=== PATIENT | male | born 1935 | race Caucasian/White ===

== ENCOUNTER 2018-09-28 09:33 | Emergency (ER) | payer MEDICARE, BC ==
[~2018-09-28] VITALS: Ht 165.1 cm; Wt 75.3 kg
[~2018-09-28 09:33] MED LIST: ATOR20TA PO; BISO5TAB2 PO; DUTA0.5C PO; METF-440 PO; METO200T49 PO
--- NOTE | 2018-09-28 09:47 | NUR ---
PATIENT WAS SEEN BY . DC AND FOLLOW UP INSTRUCTIONS GIVEN AND EXPLAINED TO [PATIENT WHO STATES HE UNDERSTANDS ALL INSTRUCTIONS. BG WAS 89
== END 2018-09-28 09:49 | disposition home or self-care (01) ==
LOC: ER 09:33
DX: E11.9 Type 2 diabetes mellitus without complications (principal); I10 Essential (primary) hypertension; F17.200 Nicotine dependence, unspecified, uncomplicated; Z79.899 Other long term (current) drug therapy
CPT/HCPCS: A4663

== ENCOUNTER 2018-10-12 16:37 | Emergency (ER) | payer MEDICARE, BC ==
[~2018-10-12] VITALS: Ht 170.2 cm; Wt 68.0 kg
[2018-10-12] MEDS ORDERED: ACETAMINOPHEN ES 500 MG TABLET ONE (17:11)
--- NOTE | 2018-10-12 17:12 | NUR ---
Patient discharged to home in stable conditon. Written and verbal after care instructions given. Patient verbalizes understanding of instructions. ALL BELONGINGS W/ PT. PT SELF-AMBULATED W/O DIFFICULTY.
[2018-10-12 17:13] VITALS: BP 102/58
[2018-10-12] MEDS ORDERED: ACETAMINOPHEN ES 500 MG TABLET PO ONE (17:15)
== END 2018-10-12 17:13 | disposition home or self-care (01) ==
LOC: ER 16:42
DX: L03.012 Cellulitis of left finger (principal); I10 Essential (primary) hypertension; E11.9 Type 2 diabetes mellitus without complications; F17.200 Nicotine dependence, unspecified, uncomplicated; Z79.899 Other long term (current) drug therapy
CPT/HCPCS: A4663; A9150

== ENCOUNTER 2019-04-02 00:32 | Emergency (ER) | payer MEDICARE, BC ==
[~2019-04-02] VITALS: Ht 170.2 cm; Wt 77.1 kg
[2019-04-02 01:00] LABS: BASOPHILS # (AUTO) 0.1 K/uL (0.0-8.0); EOSINOPHILS # (AUTO) 0.7 K/uL (0.0-0.7); HEMATOCRIT 43.9 % (36.7-47.1); HEMOGLOBIN 14.5 g/dL (12.5-16.3); LYMPHOCYTES # (AUTO) 2.2 K/uL (20.0-40.0); LYMPHOCYTES % (AUTO) 25.9 % (20.5-51.5); MEAN CORPUSCULAR HEMOGLOBIN 30.2 uug (23.8-33.4); MEAN CORPUSCULAR HGB CONC 33 g/dL (32.5-36.3); MEAN CORPUSCULAR VOLUME 91.3 fL (73.0-96.2); MONOCYTES # (AUTO) 0.8 K/uL (2.0-10.0); MONOCYTES % (AUTO) 8.9 % (0.0-11.0); NEUTROPHILS # (AUTO) 4.8 K/uL (1.8-8.9); NEUTROPHILS % (AUTO) 56.2 % (38.5-71.5); PLATELET COUNT (AUTO) 198 K/uL (152-348); RED BLOOD CELL COUNT(AUTO) 4.81 MIL/uL (4.06-5.63); WHITE BLOOD COUNT (AUTO) 8.6 K/uL (3.6-10.2)
[2019-04-02 01:02] LABS: *BILIRUBIN,URIN NEGATIVE (NEGATIVE); *BLOOD, URINE NEGATIVE (NEGATIVE); *CLARITY,URINE CLEAR (CLEAR); *COLOR,URINE YELLOW (YELLOW); *KETONES,URINE TRACE (NEGATIVE); *UROBILINOGEN,URINE 0.2 E.U./dl (NORMAL); LEUKOCYTE ESTERASE ,URINE NEGATIVE (NEGATIVE); NITRITE, URINE NEGATIVE (NEGATIVE); UGLUCOSE NEGATIVE (NEGATIVE)
[2019-04-02 01:15] LABS: CREATININE 1.3 mg/dL (0.6-1.3); POTASSIUM 4.2 mmol/L (3.5-5.1)
[2019-04-02] MEDS ORDERED: ONDANSETRON 4 MG/2 ML VIAL ONE (01:15)
[2019-04-02] MEDS ORDERED: ONDANSETRON 4 MG/2 ML VIAL IV ONE (01:15)
[2019-04-02] MEDS ORDERED: MORPHINE SULFATE 2 MG/1 ML DISP.SYRIN IV ONE (01:15)
[2019-04-02] MEDS ORDERED: MORPHINE SULFATE 2 MG/1 ML DISP.SYRIN ONE (01:16)
[2019-04-02 01:21] LABS: BILIRUBIN,DIRECT 0.1 mg/dL (0.0-0.2); BILIRUBIN,TOTAL 0.3 mg/dL (0.2-1.0)
--- NOTE | 2019-04-02 01:27 | NUR ---
Patient back in room CT.
[2019-04-02 01:57] LABS: BACTERIA,URINE NONE SEEN /HPF (NONE SEEN); RBC,URINE 0-3 /HPF (0-3); SQUAMOUS EPITHELIAL CELL,UR FEW /HPF (NONE SEEN); WBC,URINE 0-3 /HPF (0-3)
--- NOTE | 2019-04-02 02:08 | NUR ---
US at bedside for scan.
--- NOTE | 2019-04-02 02:32 | NUR ---
Patients will be picking up patient to take him home.
--- NOTE | 2019-04-02 02:40 | NUR ---
Per patient he will be taking uber, coordinated ride on patients home. Patient discharged to home in stable conditon. Written and verbal after care instructions given. Patient verbalizes understanding of instructions. Instructed patient not to drive. Patient ambulated with stable gait.
[2019-04-02 02:44] VITALS: BP 132/71
== END 2019-04-02 02:44 | disposition home or self-care (01) ==
LOC: ER 00:37
DX: R10.11 Right upper quadrant pain (principal); I10 Essential (primary) hypertension; E11.9 Type 2 diabetes mellitus without complications; E78.5 Hyperlipidemia, unspecified; F17.200 Nicotine dependence, unspecified, uncomplicated; Z79.84 Long term (current) use of oral hypoglycemic drugs; Z79.899 Other long term (current) drug therapy
CPT/HCPCS: 36415; 74176; 76705; 80048; 80076; 81000; 81001; 83690; 85025; 96374; 96375; 99284; J2270; J2405; A4663

== ENCOUNTER 2020-12-23 17:35 | Emergency (ER) | payer MEDICARE, BC ==
[~2020-12-23] VITALS: Ht 170.2 cm; Wt 72.6 kg
[~2020-12-23 17:35] MED LIST changes: -BISO5TAB2 PO; +BISO5TAB20 PO
[2020-12-23] MEDS ORDERED: ACETAMINOPHEN 325 MG TABLET PO ONE (18:00)
[2020-12-23] MEDS ORDERED: TDAP DIPH,PERTUSS,TET VAC/PF 0.5 ML DISP.SYRIN IM ONE ×2 (18:00→18:18)
[2020-12-23] MEDS ORDERED: ACETAMINOPHEN ES 500 MG TABLET ONE (18:22)
[2020-12-23] MEDS ORDERED: NEOMY/BACITRA/POLYMYXIN B OINT UD PACKET TP ONE (18:23)
[2020-12-23] MEDS ORDERED: CEPH500C2 PO (18:41)
[2020-12-23] MEDS ORDERED: SULF1TAB48 PO (18:41)
--- NOTE | 2020-12-23 19:01 | NUR ---
Per MD, applied triple A/Bx ointment and bandaged hand with 4x4 and roller gauze. Gave pt RX and d/c instructions, pt verbalized understanding.
== END 2020-12-23 18:50 | disposition home or self-care (01) ==
LOC: ER 17:35
DX: L03.114 Cellulitis of left upper limb (principal); S61.402D Unspecified open wound of left hand, subsequent encounter; W19.XXXD Unspecified fall, subsequent encounter; I10 Essential (primary) hypertension; E11.9 Type 2 diabetes mellitus without complications; Z79.84 Long term (current) use of oral hypoglycemic drugs; Z79.899 Other long term (current) drug therapy
CPT/HCPCS: 73130; 90715; A4663; A9150